=== PATIENT | male | born 1990 | race Caucasian/White ===

== ENCOUNTER 2019-03-24 16:35 | Emergency (ER) | payer OTHER ==
[2019-03-24] MEDS ORDERED: ONDANSETRON HCL INJ/PF 4 MG/2 ML SDV IV ONE ×2 (17:45→22:41)
[2019-03-24] MEDS ORDERED: NORMAL SALINE 1000 ML 1,000 ML IV ONE (17:45)
--- NOTE | 2019-03-24 17:46 | ER Document Report ---
ED Medical Screen (RME) - General Chief Complaint: Nausea/Vomiting/Diarrhea Stated Complaint: VOMITING/DIARRHEA Time Seen by Provider: 03/24/19 17:44 Notes: Patient is a 28-year-old male presents to the emergency department for nausea, vomiting, and diarrhea since 7:00 this morning. Also states he had a subjective fever prior to arrival to the emergency room. Patient is complaining of generalized lower abdominal pain. Denying any dysuria or penile discharge. GENERAL: Alert, interacts well. No acute distress. ABDOMEN: Soft, generalized right, central, left lower abdominal pain non- distended. Bowel sounds present in all 4 quadrants. I have greeted and performed a rapid initial assessment of this patient. A comprehensive ED assessment and evaluation of the patient, analysis of test results and completion of the medical decision making process will be conducted by additional ED providers. I have specifically instructed the patient or family members with the patient to immediately return to any nursing staff should anything change in the patient's condition or with their chief complaint. This medical record was dictated with voice recognizing software. There may be grammatical, syntax errors that are unintended. Past Medical History - Social History Chew tobacco use (# tins/day): No Frequency of alcohol use: Rare Drug Abuse: None Physical Exam - Vital signs Vitals: Temp Pulse Resp BP Pulse Ox 100.4 F 104 H 20 138/80 H 99 03/24/19 16:38 03/24/19 16:38 03/24/19 16:38 03/24/19 16:38 03/24/19 16:38 Course - Vital Signs Vital signs: Temp Pulse Resp BP Pulse Ox 100.4 F 104 H 20 138/80 H 99 03/24/19 16:38 03/24/19 16:38 03/24/19 16:38 03/24/19 16:38 03/24/19 16:38
[2019-03-24 18:26] LABS: HEMATOCRIT 48.3 % (37.9-51.0); HEMOGLOBIN 16.5 g/dL (13.5-17.0); MEAN CORPUSCULAR HEMOGLOBIN 29.9 pg (27.0-33.4); MEAN CORPUSCULAR HGB CONC 34.2 g/dL (32.0-36.0); MEAN CORPUSCULAR VOLUME 88 fl (80-97); PLATELET COUNT 199 10^3/uL (150-450); RED BLOOD COUNT 5.52 10^6/uL (4.35-5.55); RED CELL DISTRIBUTION WIDTH 13.1 % (11.5-14.0); WHITE BLOOD COUNT 13.2 10^3/uL (4.0-10.5)
[2019-03-24 18:27] LABS: APPEARANCE,URINE CLEAR; BILIRUBIN,URINE NEGATIVE (NEGATIVE); COLOR,URINE YELLOW; GLUCOSE, URINE NEGATIVE (NEGATIVE); KETONES,URINE NEGATIVE (NEGATIVE); LEUKOCYTE ESTERASE,URINE NEGATIVE (NEGATIVE); NITRITE,URINE NEGATIVE (NEGATIVE); PROTEIN,URINE NEGATIVE (NEGATIVE); URINE SPECIFIC GRAVITY 1.025; UROBILINOGEN,URINE NEGATIVE mg/dL (<2.0)
[2019-03-24 18:40] LABS: ALBUMIN 5.8 g/dL (3.5-5.0); ALKALINE PHOSPHATASE 61 U/L (38-126); ANION GAP 16 (5-19); ASPARTATE AMINO TRANSFERASE 32 U/L (17-59); BILIRUBIN,DIRECT 0.2 mg/dL (0.0-0.4); BILIRUBIN,TOTAL 1.1 mg/dL (0.2-1.3); BLOOD UREA NITROGEN 15 mg/dL (7-20); CALCIUM 10.7 mg/dL (8.4-10.2); CARBON DIOXIDE 26 mmol/L (22-30); CHLORIDE 100 mmol/L (98-107); GLUCOSE 108 mg/dL (75-110); POTASSIUM 4.2 mmol/L (3.6-5.0); TOTAL PROTEIN 9.5 g/dL (6.3-8.2)
[2019-03-24 19:04] LABS: ABSOLUTE LYMPHOCYTES# (MANUAL) 0.4 10^3/uL (0.5-4.7); ABSOLUTE MONOCYTES # (MANUAL) 0.5 10^3/uL (0.1-1.4); BASOPHILS % (MANUAL) 1 % (0-2); EOSINOPHILS % (MANUAL) 0 % (0-6); LYMPHOCYTES % (MANUAL) 3 % (13-45); MONOCYTES % (MANUAL) 4 % (3-13); PLATELET COMMENT ADEQUATE; SEGMENTED NEUTROPHILS % (MAN) 92 % (42-78); TOTAL CELLS COUNTED 100
[2019-03-24] MEDS: NORMAL SALINE 1000 ML 1,000 ML IV PRN (22:44)
--- NOTE | 2019-03-24 22:45 | ER Document Report ---
ED GI/ - General Chief Complaint: Nausea/Vomiting/Diarrhea Stated Complaint: VOMITING/DIARRHEA Time Seen by Provider: 03/24/19 17:44 Primary Care Provider: CHEYENNE MOFFETT PA-C [Primary Care Provider] - Follow up as needed Notes: 28-year-old healthy male presents to the emergency department for nausea, vomiting, and diarrhea since 7:00 this morning. Also states he had a subjective fever prior to arrival to the emergency room. Patient states he vomited consistently until arrived and had 14 episodes of diarrhea described as "pure water". Patient states that he did notice a little bit of blood in his stool but attributes that to the frequency. Patient states that he took some Pepto- Bismol with no relief. Patient denies any shortness of breath or chest pain, denies any family members or sick contacts with similar symptoms, denies eating anything out of the ordinary. Patient is complaining of generalized lower abdominal pain. Denying any dysuria or penile discharge. TRAVEL OUTSIDE OF THE [place] IN LAST 30 DAYS: No - Related Data Allergies/Adverse Reactions: No Known Allergies Allergy (Unverified 03/24/19 18:37) Past Medical History - Social History Smoking Status: Never Smoker Chew tobacco use (# tins/day): No Frequency of alcohol use: Rare Drug Abuse: None Family History: None Patient has suicidal ideation: No Patient has homicidal ideation: No Review of Systems - Review of Systems Constitutional: See HPI EENT: No symptoms reported Cardiovascular: See HPI Respiratory: See HPI Gastrointestinal: See HPI Genitourinary: See HPI Male Genitourinary: No symptoms reported Musculoskeletal: No symptoms reported Skin: No symptoms reported Hematologic/Lymphatic: No symptoms reported Neurological/Psychological: See HPI Physical Exam - Vital signs Vitals: Temp Pulse Resp BP Pulse Ox 100.4 F 104 H 20 138/80 H 99 03/24/19 16:38 03/24/19 16:38 03/24/19 16:38 03/24/19 16:38 03/24/19 16:38 - Notes Notes: PHYSICAL EXAMINATION: Reviewed vital signs and charting by RN GENERAL: Alert, interacts well. No acute distress. HEAD: Normocephalic, atraumatic. EYES: Pupils equal and round. Extraocular movements intact. ENT: Oral mucosa moist, tongue midline. NECK: Full range of motion. Trachea midline. LUNGS: Clear to auscultation bilaterally, no wheezes, rales, or rhonchi. No respiratory distress. HEART: Tachycardia rate 120. No murmur ABDOMEN: soft, non-tender. No distention. Bowel sounds present EXTREMITIES: Moves all 4 extremities spontaneously. No edema, No cyanosis. PSYCH: Normal affect, normal mood. SKIN: Warm, dry, normal turgor. No rashes or lesions noted. Course - Re-evaluation Re-evalutation: 03/24/19 22:42 Patient is well-appearing in no acute distress, was sleeping when I entered the room. Patient states that he is feeling better after getting normal saline 1 L and some Zofran IV. Patient denies any gross hematemesis or hematochezia. Patient is still tachycardic at 120 so I am going to give him an additional normal saline 2 L. I will reassess. Patient is already tolerated p.o. fluids. 03/25/19 00:15 Patient passed fluid challenge. Patient's heart rate has come down and is feeling better and is ready to leave. At this time he is stable for discharge. - Vital Signs Vital signs: Temp Pulse Resp BP Pulse Ox 98.6 F 106 H 18 141/63 H 99 03/24/19 23:44 03/24/19 23:44 03/24/19 23:44 03/24/19 23:44 03/24/19 23:44 - Laboratory Result Diagrams: 03/24/19 18:05 03/24/19 18:05 Laboratory results interpreted by me: 03/24/19 03/24/19 03/24/19 17:56 18:05 18:05 WBC 13.2 H Seg Neuts % (Manual) 92 H Lymphocytes % (Manual) 3 L Abs Neuts (Manual) 12.1 H Abs Lymphs (Manual) 0.4 L Calcium 10.7 H Total Protein 9.5 H Albumin 5.8 H Urine Blood MODERATE H Discharge - Discharge Clinical Impression: Vomiting and diarrhea Condition: Good Disposition: HOME, SELF-CARE Additional Instructions: You have been seen in the Emergency Department (ED) today for nausea, vomiting, and diarrhea. Your work up today has not shown a clear cause for your symptoms. You have been prescribed Zofran; please use as prescribed as needed for your nausea. Follow up with your doctor as soon as possible regarding today's emergent visit and your symptoms of nausea. Return to the Emergency Department (ED) if you develop abdominal pain, bloody vomiting, bloody diarrhea, if you are unable to tolerate fluids due to vomiting, or if you develop other symptoms that concern you. Referrals: CHEYENNE MOFFETT PA-C [Primary Care Provider] - Follow up as needed
[2019-03-24 23:45] VITALS: BP 141/63
[2019-03-25] MEDS: NORMAL SALINE 1000 ML 1,000 ML IV PRN (00:10)
[2019-03-25] MEDS ORDERED: ONDANSETRON ODT 4 MG TAB (6 TAB/ER DISP) PO PRN (00:19)
== END 2019-03-25 00:22 | disposition home or self-care (01) ==
LOC: ER 16:35
DX: R11.2 Nausea with vomiting, unspecified (principal); R19.7 Diarrhea, unspecified; R10.30 Lower abdominal pain, unspecified; R00.0 Tachycardia, unspecified
CPT/HCPCS: 36415; 83690; 85025; 80053; 81001; J2405; J7030 ×2; 96361; 96374; 96376; 99284